=== PATIENT | female | born 1980 | race Caucasian/White ===

== ENCOUNTER → 2016-11-07 | Outpatient (CLI) | payer BC ==
[2016-11-07 17:26] LABS: URINE APPEARANCE CLEAR (CLEAR); URINE BILIRUBIN NEG (NEG); URINE COLOR YELLOW; URINE NITRITE NEG (NEG); URINE PH 6.5 (4.5-7.5); URINE SPECIFIC GRAVITY 1.024 (1.000-1.030); UROBILINOGEN NEG (NEG)
[2016-11-07 17:27] LABS: MANUAL MICROSCOPIC REQUIRED? NO; REVIEW REQ? NO
== END | disposition home or self-care (01) ==
LOC: C.LABSPEC 16:16
PROVIDERS: ATTEND Obstetrics & Gynecology
DX: O09.519 Supervision of elderly primigravida, unspecified trimester (principal)

== ENCOUNTER → 2016-11-14 | Outpatient (CLI) | payer BC | END | disposition home or self-care (01) | LOC: C.PAPS 10:47 | PROVIDERS: ATTEND Obstetrics & Gynecology | DX: Z01.419 Encounter for gynecological examination (general) (routine) without abnormal findings (principal) ==

== ENCOUNTER → 2016-11-14 | Outpatient (CLI) | payer BC ==
[2016-11-17 15:33] LABS: CHLAMYDIA TRACH RNA*** NOT DETECTED (NOT DETECTED); GC (NEIS GONORRHOEAE)RNA** NOT DETECTED (NOT DETECTED)
== END | disposition home or self-care (01) ==
LOC: C.LABSPEC 15:44
PROVIDERS: ATTEND Obstetrics & Gynecology
DX: O09.519 Supervision of elderly primigravida, unspecified trimester (principal); Z3A.00 Weeks of gestation of pregnancy not specified

== ENCOUNTER → 2016-11-26 | Outpatient (CLI) | payer BC ==
[2016-11-26 17:35] LABS: BASO % 0.1 %; BASO ABS # 0.01 K/uL (0-0.2); COMPLETE YES; EOS % 0.9 %; HEMATOCRIT 35.9 % (37-47); IG% 0.2 %; LYMPH % 18.6 %; MEAN CELL VOLUME 79.4 fL (80-100); MEAN CORPUSCULAR HGB CONC 36.5 g/dl (32-36); MEAN PLATELET VOLUME 9.1 fL (7.4-10.4); MONO % 7.1 %; NEUT % 73.1 %; PLATELET COUNT 270 K/uL (130-400); RED BLOOD COUNT 4.52 M/uL (4.2-5.4); WHITE BLOOD COUNT 8.62 K/uL (4.8-10.8)
== END | disposition home or self-care (01) ==
LOC: C.LAB1850 17:07
PROVIDERS: ATTEND Obstetrics & Gynecology
DX: O09.519 Supervision of elderly primigravida, unspecified trimester (principal); Z3A.00 Weeks of gestation of pregnancy not specified

== ENCOUNTER → 2017-01-02 | Outpatient (CLI) | payer BC ==
[~2017-01-02] MED LIST: MTR600X PO; OXYC-57 PO; PRENTAB26 PO
[2017-01-02 19:10] LABS: GTGD 50 Grams
== END | disposition home or self-care (01) ==
LOC: C.LAB1850 15:28
PROVIDERS: ATTEND Obstetrics & Gynecology
DX: O09.519 Supervision of elderly primigravida, unspecified trimester (principal); Z3A.00 Weeks of gestation of pregnancy not specified

== ENCOUNTER → 2017-04-03 | Outpatient (CLI) | payer BC ==
[2017-04-03 16:32] LABS: HEMATOCRIT 33.1 % (37-47)
[2017-04-03 17:06] LABS: GTGD 50 Grams
== END | disposition home or self-care (01) ==
LOC: C.LAB1850 14:51
PROVIDERS: ATTEND Obstetrics & Gynecology
DX: O09.512 Supervision of elderly primigravida, second trimester (principal)

== ENCOUNTER → 2017-04-03 | Outpatient (CLI) | payer BC ==
[2017-04-03 16:10] LABS: URINE APPEARANCE CLEAR (CLEAR); URINE BILIRUBIN NEG (NEG); URINE COLOR DK YELLOW; URINE EPITHELIAL CELL AUTO >30 /lpf (0-5); URINE NITRITE NEG (NEG); URINE PH 6.5 (4.5-7.5); URINE SPECIFIC GRAVITY 1.027 (1.000-1.030); UROBILINOGEN NEG (NEG)
[2017-04-03 16:11] LABS: MANUAL MICROSCOPIC REQUIRED? NO; REVIEW REQ? NO
== END | disposition home or self-care (01) ==
LOC: C.LABSPEC 15:46
PROVIDERS: ATTEND Obstetrics & Gynecology
DX: O09.512 Supervision of elderly primigravida, second trimester (principal)

== ENCOUNTER → 2017-05-22 | Outpatient (CLI) | payer BC | END | disposition home or self-care (01) | LOC: C.LABSPEC 17:20 | PROVIDERS: ATTEND Obstetrics & Gynecology | DX: O09.512 Supervision of elderly primigravida, second trimester (principal) ==

== ENCOUNTER 2017-06-17 03:15 | Inpatient (IN) | payer BC ==
[~2017-06-17] VITALS: Ht 154.9 cm; Wt 101.8 kg
[2017-06-26] MEDS ORDERED: LACTATED RINGER'S 1000ML 1,000 ML IV PRN (11:16)
[2017-06-26] MEDS ORDERED: LACTATED RINGER'S 1000ML 500 ML IV PRN ×2 (11:17→17:58)
[2017-06-26 11:26] VITALS: Ht 154.9 cm; Wt 101.8 kg
[2017-06-26] MEDS ORDERED: PRENTAB26 PO (11:28)
[2017-06-26] MEDS ORDERED: OXYTOCIN 30 UNITS/500ML NSS IV PRN (11:30)
[2017-06-26 11:55] LABS: HEMATOCRIT 29.6 % (37-47); MEAN CELL VOLUME 77.7 fL (80-100); MEAN CORPUSCULAR HEMOGLOBIN 26.5 pg (25-34); MEAN CORPUSCULAR HGB CONC 34.1 g/dl (32-36); MEAN PLATELET VOLUME 9.5 fL (7.4-10.4); PLATELET COUNT 207 K/uL (130-400); RED BLOOD COUNT 3.81 M/uL (4.2-5.4); WHITE BLOOD COUNT 11.82 K/uL (4.8-10.8)
[2017-06-26] MEDS: LACTATED RINGER'S 1000ML 1,000 ML IV SCH ×2 (15:26→19:42)
[2017-06-26] MEDS ORDERED: BUPIVACAINE 0.25% 30 ML VIAL ONE (16:55)
[2017-06-26] MEDS ORDERED: EpHEDrine SULFATE INJ 50 MG/ML AMP ONE (16:55)
[2017-06-26] MEDS ORDERED: FENTANYL 2MCG/ML ROPIV 1.25MG/ML 100ML BAG EPI ONE (16:55)
[2017-06-26] MEDS ORDERED: FENTANYL CITRATE INJ 50 MCG/1 ML 2 ML VIAL ONE (16:56)
[2017-06-26] MEDS ORDERED: NALOXONE HCL INJ 1 MG in SODIUM CHLORIDE 0.9% 1000ML 1,000 ML IV PRN ×4 (17:58)
[2017-06-26] MEDS ORDERED: DiphenhydrAMINE HCL 50 MG/ML VIAL IV PRN (18:00)
[2017-06-26] MEDS ORDERED: METOCLOPRAMIDE HCL INJ 20 MG in SODIUM CHLORIDE 0.9% 50ML 50 ML IV PRN (18:00)
[2017-06-26] MEDS ORDERED: ONDANSETRON INJ 2 MG/ML 2 ML VIAL IV PRN (18:00)
[2017-06-26] MEDS ORDERED: PROMETHAZINE HCL INJ 25 MG in SODIUM CHLORIDE 0.9% 50ML 50 ML IV PRN (18:00)
[2017-06-26] MEDS ORDERED: EpHEDrine SULFATE INJ 50 MG/ML AMP IV PRN (18:00)
[2017-06-26] MEDS ORDERED: FENTANYL 2MCG/ML ROPIV 1.25MG/ML 100ML BAG EPI PRN (18:00)
[2017-06-26] MEDS ORDERED: NALBUPHINE HCL INJ 10 MG/ML AMP IV PRN (18:00)
[2017-06-26] MEDS ORDERED: NALOXONE HCL INJ 0.4 MG/1 ML VIAL/CARP IV PRN (18:00)
[2017-06-26] MEDS ORDERED: LACTATED RINGER'S 1000ML 1,000 ML IV SCH (23:16)
[2017-06-26] MEDS ORDERED: CITRIC ACID/SODIUM CITRATE 15 ML UDC ONE (23:18)
[2017-06-26] MEDS ORDERED: CITRIC ACID/SODIUM CITRATE 15 ML UDC PO STA (23:27)
[2017-06-26] MEDS ORDERED: CEFAZOLIN 3000MG IV PUSH 15 ML IV STA (23:28)
[2017-06-26] MEDS ORDERED: CEFAZOLIN SOD 3000MG/15 ML IV PUSH IV STA (23:39)
[2017-06-26] MEDS ORDERED: CEFAZOLIN IV STA (23:41)
[2017-06-27] VITALS (16 sets, daily range): BP systolic 103–145; BP diastolic 60–77; PULSE 64–91; TEMP 36.4–36.9; O2SAT 94–99
[2017-06-27] MEDS ORDERED: OXYTOCIN INJ 10 UNITS/ML VIAL ONE (00:10)
[2017-06-27] MEDS ORDERED: LIDOCAINE/EPINEPHRINE 2% 1:200,000 20 ML SDV ONE (00:12)
[2017-06-27] MEDS ORDERED: FENTANYL CITRATE INJ 50 MCG/1 ML 2 ML VIAL ONE (00:12)
[2017-06-27] MEDS ORDERED: MoRPHine SULFATE PF 1 MG/ML 10 ML AMP/VIAL ONE (00:51)
[2017-06-27] MEDS ORDERED: ONDANSETRON INJ 2 MG/ML 2 ML VIAL ONE (00:57)
[2017-06-27] MEDS ORDERED: DEXAMETHASONE SOD INJ 4 MG/ML VIAL ONE (00:58)
[2017-06-27] MEDS ORDERED: SODIUM CHLORIDE 0.9% 1000ML 1,000 ML IV PRN (01:25)
[2017-06-27] MEDS ORDERED: NALOXONE HCL INJ 1 MG in SODIUM CHLORIDE 0.9% 1000ML 1,000 ML IV PRN ×4 (01:25)
[2017-06-27] MEDS ORDERED: NALOXONE HCL INJ 0.08 MG in SYRINGE 1.8 ML IV PRN (01:25)
[2017-06-27] MEDS ORDERED: LACTATED RINGER'S 1000ML 500 ML IV PRN (01:25)
[2017-06-27] MEDS ORDERED: DC INTRASPINAL MORPHINE SCH (01:30)
[2017-06-27] MEDS ORDERED: DiphenhydrAMINE HCL 50 MG/ML VIAL IV PRN ×2 (01:30→19:30)
[2017-06-27] MEDS ORDERED: KETOROLAC TROMETHAMINE 30 MG/ML VIAL IV. PRN ×2 (01:30→19:30)
[2017-06-27] MEDS ORDERED: NALBUPHINE HCL INJ 10 MG/ML AMP IV PRN (01:30)
[2017-06-27] MEDS ORDERED: NALOXONE HCL 0.4 MG/1 ML VIAL/CARP IV PRN (01:30)
[2017-06-27] MEDS ORDERED: NO NARCOTICS OR SEDATIVES SCH (01:30)
[2017-06-27] MEDS ORDERED: MoRPHine SULFATE PF 1 MG/ML 10 ML AMP/VIAL EPI PRN (01:30)
[2017-06-27] MEDS ORDERED: PROMETHAZINE HCL INJ 25 MG in SODIUM CHLORIDE 0.9% 50ML 50 ML IV PRN (01:30)
[2017-06-27] MEDS ORDERED: EpHEDrine SULFATE INJ 50 MG/ML AMP IV PRN (01:30)
[2017-06-27] MEDS ORDERED: OXYTOCIN INJ 20 UNITS in LACTATED RINGER'S 1000ML 1,000 ML IV SCH (02:02)
[2017-06-27] MEDS ORDERED: LACTATED RINGER'S 1000ML 1,000 ML IV SCH (02:02)
[2017-06-27] MEDS ORDERED: LANOLIN OINT EXT PRN ×2 (02:15)
[2017-06-27] MEDS ORDERED: DIPHTHERIA/TETANUS/PERTUSSIS 0.5 ML SYR/VIAL IM. ONE (02:15)
[2017-06-27] MEDS ORDERED: SUPERCREAM 0.870 % 15GM JAR EXT PRN (02:15)
[2017-06-27] MEDS ORDERED: HYDROCORTISONE ACETATE 25 MG SUPP PR PRN (02:15)
[2017-06-27] MEDS ORDERED: BENZOCAINE 20% AER SPR 82.5 GM CAN EXT PRN (02:15)
--- NOTE | 2017-06-27 02:22 | [facility] Post Operative Brief Note ---
Immediate Operative Summary Operative Date Jun 27, 2017. Pre-Operative Diagnosis IUP at 40 3/7 weeks intolerance of labor thick meconium Post-Operative Diagnosis same Procedure(s) Performed primary low transverse c/s Surgeon Ryan Mechanical Drawing Teacher Surgeon(s) Jadiel Estimated Blood Loss 600cc Findings viable male , cephalic, very thick mec, . apgars 8/9. nl utx/tubes/ovs bilaterally. Fluids (cc crystalloids) 1000 cc Specimens placenta, cord blood Drains molina Anesthesia epidural Complication(s) None Disposition Recovery Room / PACU
--- NOTE | 2017-06-27 04:06 | OPERATIVE REPORT ---
DATE OF OPERATION: 06/27/2017 PREOPERATIVE DIAGNOSES: 1. Intrauterine at 41-3/7 weeks. 2. intolerance to labor. 3. Thick meconium. POSTOPERATIVE DIAGNOSIS: Same. PROCEDURES: Primary low transverse section. SURGEON: Jennifer Davis MD ROOFER VINYL COATING: Louie Duvall MD ANESTHESIA: Epidural. ESTIMATED BLOOD LOSS: 600 mL. FLUIDS: 1000 mL. URINE OUTPUT: 200 mL of concentrated urine drained from the bladder at the end of the procedure. INDICATIONS: The patient presented for postdates induction. She underwent a De Leon bulb for ripening. She then presented to labor and delivery where she underwent Pitocin augmentation, amniotomy for thin meconium fluid, and then never progressed past 6 cm dilated. IUPC and FSE were placed. Contractions were very well adequate at placement of the IUPC and the heart rate did not tolerate. heart rate showed multiple variable decelerations and one prolonged bradycardic episode and the meconium just got very, very thick. Discussion with the patient of risks and benefits versus continued attempts at augmentation and delivery, and the patient elects delivery. FINDINGS: Viable male in cephalic presentation, Apgars 8 and 9, weight pending. Normal uterus, tubes, and ovaries were noted bilaterally. Very thick particulate meconium noted after hysterotomy incision made. COMPLICATIONS: None. DRAINS: De Leon. DISPOSITION: To recovery room in stable condition. DESCRIPTION OF PROCEDURE: The patient was taken to the operating room where she was identified verbally and by bracelet. She was transferred to the operating table. A De Leon catheter had previously been placed. She was placed in dorsal supine position with leftward tilt. Her anesthetic was dosed by anesthesia. She was prepped and draped in a normal sterile fashion. Time-out was held identifying correct patient, procedure and positioning. The anesthetic was tested and found to be adequate. A Pfannenstiel skin incision was made with the knife and taken down to the underlying layer of fascia with Bovie electrocautery. Bleeding was attended to with Bovie electrocautery. The fascia was incised in midline with cautery and taken out laterally with scissors. The superior edge of the fascial incision was grasped, elevated, and the underlying layer of rectus muscle was taken off bluntly and with scissors. In a similar fashion, the inferior edge of the fascial incision was grasped, elevated, and the underlying layer of rectus muscle was taken off bluntly and with scissors. The muscles were bluntly and sharply in the midline with scissors. The peritoneum was entered bluntly and was taken superiorly and inferiorly with good visualization of the bladder, sharply with scissors. The incision was stretched. The bladder blade was placed. The vesicouterine peritoneum was identified, grasped with a snap, entered with scissors and taken out laterally. The bladder flap was created digitally. Hysterotomy incision was scored with the knife. The uterus was entered with a snap, very thick particulate meconium was noted upon stretching the hysterotomy incision. The copy operator's hands were placed into the uterus and the head was delivered atraumatically through that incision. A loose nuchal cord x1 was reduced. Dr. Dhillon, catalogue librarian was present and scrubbed in at the table. She suctioned out the baby's nose and mouth and the rest of the baby was then delivered without difficulty. The cord was clamped and cut. The was handed off to the awaiting catalogue librarian for drying and attention. Cord blood and gases were obtained. The placenta was manually extracted and the uterus was cleared of all clot and debris with moistened laparotomy sponges. The hysterotomy incision was repaired in 2 layers, the first in a running locked layer, the second in an imbricating layer. Two [id number] sutures were needed in the midline and hemostasis was assured. The posterior cul-de-sac was irrigated of all clot and debris. The uterus was re-interiorized and hemostasis was noted to be adequate. The muscles were reapproximated in the midline with several interrupted sutures of 0 Vicryl. The fascia was reapproximated from the edges meeting in the midline with 0 Vicryl. The subcuticular tissue was irrigated and bleeding was attended to with Bovie electrocautery until hemostasis was assured, and the skin was then closed with subcuticular stitch of 4-0 Vicryl. All sponge, lap and needle counts were correct x2. The patient tolerated the procedure well and was taken to recovery room in stable condition. I attest to the content of the Intraoperative Record and any orders documented therein. Any exception s are noted below.
[2017-06-27] MEDS ORDERED: CEFAZOLIN IV 3,000 MG in DEXTROSE 5% 50ML 50 ML IV SCH (06:00)
--- NOTE | 2017-06-27 08:20 | Anesthesia Procedure Note ---
Anesthesia Epidural Removal Nt Date & Time Jun 27, 2017 at 08:20 Vital Signs Pain Intensity: 0.0 Vital Signs Past 12 Hours Date Time Temp Pulse Resp B/P (MAP) Pulse Ox O2 Delivery O2 Flow Rate FiO2 06/27/17 06:35 18 96 06/27/17 05:30 16 95 06/27/17 04:50 36.9 68 18 135/60 (85) 96 Room Air 06/27/17 04:50 18 96 06/27/17 04:50 96 Room Air Notes Mental Status: alert / awake / arousable, participated in evaluation Nausea / Vomiting: adequately controlled Pain: adequately controlled Airway Patency, RR, SpO2: stable & adequate BP & HR: stable & adequate Hydration State: stable & adequate Neuraxial Anesthesia: was administered Anesthetic Complications: no major complications apparent, pt satisfied with anesthetic care Epidural: removed without complications, with tip intact
[2017-06-27] MEDS: SIMETHICONE 80 MG CHEW PO SCH ×4 (09:03→20:53)
[2017-06-27] MEDS: PRENATAL VITAMIN TAB PO SCH (09:04)
[2017-06-27] MEDS: DOCUSATE SODIUM 100 MG CAP PO SCH ×2 (09:04→20:53)
[2017-06-27] MEDS: ONDANSETRON INJ 2 MG/ML 2 ML VIAL IV PRN ×2 (10:24→17:39)
[2017-06-27] MEDS ORDERED: MEPERIDINE HCL 50 MG/ML CARP IV PRN ×2 (19:30)
[2017-06-27] MEDS ORDERED: OXYCODONE/ACETAMINOPHEN 5-325 TAB PO PRN (19:30)
[2017-06-28] MEDS: IBUPROFEN 600 MG TAB PO PRN ×4 (00:26→17:29)
[2017-06-28] MEDS: OXYCODONE/ACETAMINOPHEN 5-325 TAB PO PRN ×4 (00:27→17:29)
[2017-06-28 00:45] VITALS: BP 102/66; PULSE 74; TEMP 36.4; O2SAT 94
--- NOTE | 2017-06-28 06:44 | Progress Note ---
Subjective Jun 28, 2017. Subjective conversation w/ patient, physical exam, chart review, lab review Ambulation: ambulating normally Voiding: no voiding problems Diet Tolerance: Regular Diet Lochia: Moderate Objective Vital Signs Date Time Temp Pulse Resp B/P (MAP) Pulse Ox O2 Delivery O2 Flow Rate FiO2 06/28/17 00:45 94 Room Air 06/28/17 00:45 36.4 74 20 102/66 (78) 94 Room Air 06/27/17 19:30 20 96 06/27/17 19:30 36.4 77 20 113/71 (85) 98 06/27/17 18:30 20 96 06/27/17 17:30 20 98 06/27/17 16:30 20 99 06/27/17 15:30 36.7 91 20 127/73 (91) 06/27/17 15:30 96 06/27/17 15:30 20 96 06/27/17 13:45 16 96 06/27/17 12:45 18 96 06/27/17 11:50 36.8 64 16 103/66 (78) 94 Room Air 06/27/17 11:45 16 94 06/27/17 10:45 18 95 06/27/17 09:45 20 97 06/27/17 08:45 20 96 06/27/17 07:45 95 Room Air 06/27/17 07:45 36.7 72 18 145/77 (99) 95 Room Air 06/27/17 07:45 18 95 Physical Exam General Appearance: WELL-APPEARING Abdomen: normal bowel sounds, non tender Fundus: Firm Incision Description: Clean, Dry & Intact Extremities: no calf tenderness Laboratory Results Last 24 Hours Test 06/28/17 06:00 Assessment and Plan Post-Op Day#: 2 Continue Routine Care: home
[2017-06-28] MEDS ORDERED: OXYC-57 PO (06:45)
[2017-06-28] MEDS ORDERED: MTR600X PO (06:45)
--- NOTE | 2017-06-28 06:45 | Discharge Instructions ---
Discharge Instructions Date of Service Jun 28, 2017. Admission Reason for Admission: Induction Discharge Discharge Diagnosis / Problem: c/s Discharge Goals Goal(s): Routine recovery after Activity Recommendations Activity Limitations: per Instructions/Follow-up section . Instructions / Follow-Up Instructions / Follow-Up ACTIVITY RECOMMENDATIONS: * Gradual return to full activity over the next 2-3 weeks. * No lifting - nothing heavier than baby over the next 2-3 weeks. * Do not engage in vigorous exercise, sexual activity or sports until cleared by your physician. * Do not drive or operate any motorized equipment until cleared by your physician. * You may shower/bathe daily. MEDICATIONS: For discomfort or pain, you may use Acetaminophen (Tylenol), Ibuprofen (Advil), or Naproxen (Aleve) following the package directions. For constipation you may use Colace following the package directions. BREAST CARE: If you are not breast feeding: * Wear a supportive bra 24 hours a day for one to two weeks. * Avoid stimulating your breasts and nipples as much as possible during the first few weeks after delivery. * When taking a shower, have the warm water hit your back, not breasts. * When your breasts feel full, apply ice packs. Usually three to four times a day helps ease the discomfort. * Take a mild pain medication (Tylenol / Motrin) when you are uncomfortable. If breast feeding: * Use breast milk to lubricate nipples. Lansinoh cream may be used for sore nipples. You do not need to remove cream prior to breast feeding. If using a different brand of cream, check the label for directions regarding removal of cream prior to nursing. * Wear a supportive bra. * If having problems with breasts or breast feeding, call a loss control consultant or your health care provider. SPECIAL CARE INSTRUCTIONS: When you are discharged from the hospital, it is important for you to follow the instructions listed below: * During the first week at home, you should be able to care for yourself and your baby. In addition, the usual light household activities are encouraged. * Limit your activities to the way you feel. Do not try to clean the house or move furniture. Be sensible. * If you actively engage in sports and have done so up until the time of your delivery, you may resume these activities as soon as you feel able. This may take up to one month or even longer. Use good judgment. * Continue to take your vitamins for at least six weeks after the of your baby. * Your diet need not be limited unless you were on a special diet before your delivery. Breast-feeding mothers need around 2500 calories per day and at least 64-80 ounces of fluid per day (8 to 10 glasses). * You should eat foods from the four major food groups. Crash diets or fad diets are to be avoided. Eating lean meats, fresh fruits and vegetables, low-fat dairy products, high fiber foods and a regular exercise program, will help you get back to your pre- weight without putting your health at risk. * Constipation is sometimes a problem after delivery. Take a mild laxative as needed. If breast feeding, Milk of Magnesia is acceptable to use. You may use a suppository or Fleets enema. * A daily shower or tub bath is suggested. Wash incision daily with warm soapy water and pat dry. It doesn't need to be covered unless drainage is present. * A bloody vaginal discharge will usually continue until around four weeks . A small amount of bleeding may continue for as long as six weeks. Vaginal discharge changes from the bright red bleeding after delivery to pink then brownish and finally yellowish-pink before becoming white and disappearing. * Bleeding may increase with activity. Your first period may come in 4-8 weeks. If you are breast feeding, your period may be delayed even longer. * [place] (sex) can begin whenever both you and your partner feel comfortable and do not have any form of genital infection. It is recommended that you wait at least six weeks for internal and external healing to occur. If you have questions, please talk to your health care practitioner. A condom should be used to prevent infection and . * Foreplay, gentle intercourse and lubrication is very important the first several times to prevent pain. A water-based lubricant such as K-Y jelly or Astroglide may be used. * If you have RH negative blood and your baby is RH positive, you will receive RHOGAM by injection prior to discharge. The nurse will give you a card to keep with you that has the date and place that you received RHOGAM after delivery. * During your care, you had a Rubella screen done to check for the presence of rubella antibodies in your blood. If your test was negative, you will receive a Rubella vaccine prior to discharge. This vaccine may cause a fever, soreness at the injection site and flu-like symptoms. If these symptoms persist, notify your health care practitioner. is not advised for one month after a Rubella vaccine. * Verbalizes understanding of car seat law as reviewed with patient nursing. * Car Seat hand-out given and reviewed with patient by nursing. * Shaken baby information reviewed with patient by nursing. Call you doctor if: * Heavy bleeding (saturating several pads an hour) or passing clots the size of your fist. * A fever >101 degrees F (38.3 degrees C) on two occasions four hours apart and /or chills. * Unusual pain in the pelvic or vaginal areas. * Call the doctor for any increased redness, drainage or swelling around the incision and any pain unrelieved by prescribed pain medication. * "Baby Blues" lasting longer than two weeks. If you have any questions or concerns, call your health care practitioner at . FOLLOW UP VISIT: * Please call the office at to schedule a 6 week examination. It is important you keep this appointment. It is important for you to make arrangements for either yearly or twice yearly check-ups thereafter. Current Hospital Diet Patient's current hospital diet: Regular OB Diet Discharge Diet Recommended Diet: Regular OB Diet Procedures Procedures Performed: Section resulting in live male child Pending Studies Studies pending at discharge: no Medical Emergencies . Who to Call and When: Medical Emergencies: If at any time you feel your situation is an emergency, please call [phone] immediately. . Non-Emergent Contact Non-Emergency issues call your: Environmental Monitoring Technician . . "Provider Documentation" section prepared by Louie Duvall. . VTE Core Measure Inpt VTE Proph given/why not?: Jammie Peralta, SCD's
[2017-06-28 07:25] LABS: BASO % 0.2 %; BASO ABS # 0.02 K/uL (0-0.2); EOS % 0.8 %; HEMATOCRIT 25.1 % (37-47); IG% 0.5 %; LYMPH % 14.7 %; MEAN CELL VOLUME 78.9 fL (80-100); MEAN CORPUSCULAR HEMOGLOBIN 26.4 pg (25-34); MEAN CORPUSCULAR HGB CONC 33.5 g/dl (32-36); MEAN PLATELET VOLUME 9.4 fL (7.4-10.4); MONO % 4.9 %; NEUT % 78.9 %; PLATELET COUNT 198 K/uL (130-400); RED BLOOD COUNT 3.18 M/uL (4.2-5.4); WHITE BLOOD COUNT 12.28 K/uL (4.8-10.8)
[2017-06-28 07:45] VITALS: BP 105/61; PULSE 70; TEMP 36.5; O2SAT 96; O2SAT 97
[2017-06-28 07:52] LABS: COMPLETE YES
[2017-06-28] MEDS: DOCUSATE SODIUM 100 MG CAP PO SCH (08:59)
[2017-06-28] MEDS: SIMETHICONE 80 MG CHEW PO SCH ×3 (08:59→17:28)
[2017-06-28] MEDS: PRENATAL VITAMIN TAB PO SCH (08:59)
[2017-06-28 16:45] VITALS: BP 112/71; PULSE 82; TEMP 36.7; O2SAT 96
[2017-06-28] MEDS ORDERED: PERCOCET HOME PACK PO ONE (18:30)
== END 2017-06-28 20:30 | disposition home or self-care (01) | DRG 766 ==
LOC: C.LD 06-26 10:30 → C.MS4N 06-27 04:09
PROVIDERS: ADMIT Obstetrics & Gynecology; ATTEND Obstetrics & Gynecology
PROC: 3E033VJ Introduction of Other Hormone into Peripheral Vein, Percutaneous Approach (ICD-10-PCS; principal; 2017-06-26)
PROC: 10907ZC Drainage of Amniotic Fluid, Therapeutic from Products of Conception, Via Natural or Artificial Opening (ICD-10-PCS; principal; 2017-06-26)
PROC: 10D00Z1 Extraction of Products of Conception, Low, Open Approach (ICD-10-PCS; 2017-06-27)
DX: O76 Abnormality in fetal heart rate and rhythm complicating labor and delivery (principal); O48.0 Post-term pregnancy; O09.513 Supervision of elderly primigravida, third trimester; O69.81X0 Labor and delivery complicated by cord around neck, without compression, not applicable or unspecified; Z3A.41 41 weeks gestation of pregnancy; Z37.0 Single live birth

== ENCOUNTER 2017-06-25 21:19 | Outpatient (CLI) | payer BC ==
[2017-06-26] MEDS ORDERED: PRENTAB26 PO (11:28)
== END 2017-06-25 23:00 | disposition home or self-care (01) ==
LOC: C.LD 21:19 → C.OPB 21:19
PROVIDERS: ATTEND Obstetrics & Gynecology
DX: O48.0 Post-term pregnancy (principal); Z3A.00 Weeks of gestation of pregnancy not specified